=== PATIENT | male | born 1930 | race Caucasian/White ===

== ENCOUNTER 2016-08-24 10:12 | Outpatient (CLI) | payer MEDICARE ==
[~2016-08-24] VITALS: Ht 177.8 cm; Wt 93.2 kg
--- NOTE | ~2016-08-24 | HEMODYNAMI ---
PATIENT:JOSE TORRES MEDICAL RECORD: [id number] : 30 LOCATION:[facility] ADMISSION DATE: 08/24/16 Generatedon:08/24/201612:50 Patient name: JOSE TORRES Patient #: [id number] SSN: DO B: 1930 Date of study: 08/24/2016 Page: Of Hemodynamic Procedure Report Patient Data Patient Demographics Procedure consent was obtained First Name: JOSE Gender: Male Last Name: MELISSA : 1930 Middle Initial: S Age: 85 year(s) Patient #: [id number] Race: Additional ID: [id number] Contact details Address: [address] [place] [address] State: [place] City: [place] Zip code: [address] Past Medical History History of disease Date Diagnosis Comments CAD Hypertension Allergies Allergen Reaction Date Comments Reported Other allergy 08/24/2016 PCN Admission Admission Data Admission Date: 08/24/2016 Admission Time: 10:12 Admit Source: Other Insurance Payor: Private health insurance Height (in.): 70 BSA: 2.11 (m2) Height (cm.): 177.8 BMI: 29.41 (kg/m2) Weight (lbs.): 205 Weight (kg.): 92.99 Procedure Procedure Types Cath Procedure Diagnostic Procedure Cardioversion Procedure Description Procedure Date Procedure Date: 08/24/2016 Procedure Start Time: 12:42 Procedure End Time: 12:48 Procedure Staff Name Function Eleuterio Hua MD Performing Physician Dani Kaufman RN Nurse David Senior RN Train Driver Amado Guy RT Monitor Procedure Data Cath Procedure Fluoroscopy Diagnostic fluoroscopy Total fluoroscopy Time: 0 time: 0 min min Diagnostic fluoroscopy Total fluoroscopy dose: 0 dose: 0 mGy mGy Contrast Material Contrast Material Type Amount (ml) Isovue 300 0 Estimated blood loss: 0 ml Procedure Complications No complications Procedure Medications Medication Administration Route Dosage Oxygen NC 2 l/min Refer to Anesthesia Notes for Sedation Medications Hemodynamics Rest BSA: 2.11 (m2) O2 Consumption: Estimated: 239.5 (ml/min) O2 Consumption indexed: Estimated:113.51 (ml/min/m) Heart Rate: 70 (bpm) Snapshots Pre Cath Intra NCS Post Cath Vital Signs Time Heart Resp SPO2 etCO2 [id number] Respiration NIBP (mmHg) Rhythm Pain Sedation Rate (ipm) (%) (mmHg) (mmHg) (CO2) (ipm) Status Level (bpm) 12:38:50 67 14 98 36.5 2.2 12 129/72(98) NSR 0 (1 1) 10(A) , No pain 12:43:49 55 16 98 21.6 2.9 20 117/65(100) NSR 0 (1 1) 9(A) , No pain 12:47:59 57 17 97 12.7 2.9 11 114/65(92) NSR 0 (1 1) 10(A) , No pain Medications Time Medication Route Dose Verified Delivered Reason Notes Effectiven ess by by 12:37:42 Oxygen NC 2 Eleuterio Louise used for l/min Melita Kaufman bank consultant 12:37:45 Refer to Eleuterio Louise Anesthesia Melita Kaufman RN Notes for Sedation Medications Procedure Log Time Note 12:19:41 David Senior RN sent for patient. Start room use. 12:19:42 Time tracking: Regular hours 12:19:46 Plan of Care:Hemodynamics will remain stable., Cardiac rhythm will remain stable., Comfort level will be maintained., Respiratory function will remain adequate., Patient/ family verbilizes understanding of procedure., Procedure tolerated without complication., Recovers from procedure without complications.. 12:22:28 Quick Combo opened to sterile field. 12:23:16 Rajeev Singleton present and monitoring patient for TIVA. 12:30:59 Patient received from Outpatients to CCL 2 Alert and oriented. Tansferred to table in Supine position. 12:31:00 Warm blankets applied, and crow hugger turned on for patient comfort. 12:31:01 Correct patient and procedure confirmed by team. 12:31:03 Signed procedure consent form obtained from patient. 12:31:04 ECG and BP/O2 sat monitors applied to patient. 12:32:45 H&P Date Dictated: 08/18/2016 Within 30 days and on chart., H&P Addendum completed by physician on day of procedure. (MUST COMPLETE FOR ALL OUTPATIENTS). 12:32:50 Pre-procedure instructions explained to patient. 12:32:51 Pre-op teaching completed and patient verbalized understanding. 12:32:53 Family in waiting room. 12:32:54 Patient NPO since Midnight. 12:33:55 Patient allergic to Other allergyPCN 12:33:58 Is the patient allergic to Iodine/contrast media? No. 12:35:08 Is patient on blood thinner?Yes 12:35:11 ACC The patient was administered the following blood thiners within the last 24 hours: Xarelto 12:35:15 Patient diabetic? No. 12:35:18 Previous problem with sedation/anesthesia? No ? 12:35:19 Snore? No 12:35:21 Sleep apnea? No 12:35:22 Deviated septum? No 12:35:22 Opens mouth fully? Yes 12:35:23 Sticks out tongue? Yes 12:35:25 Airway obstruction? No ? 12:35:27 Dentures? No ? 12:35:40 Patient pain scale 0/10 ?. 12:35:45 IV patent on arrival in right forearm with 0.9% NaCl at [facility]. 12:35:53 Alarms reviewed by Russ Green 12:36:36 Physician paged 12:36:45 Admit Source: Other 12:36:55 Patient Height : 70 cm 12:37:04 Patient Weight : 205 kg 12:37:04 Insurance Payor : Private health insurance 12:37:42 Oxygen 2 l/min NC was given by Dani Kaufman RN; used for procedure; 12:37:42 Vital chart was started 12:37:45 Refer to Anesthesia Notes for Sedation Medications was given by Dani Kaufman RN; ; 12:37:51 Baseline sample Acquired. 12:38:02 Rhythm: atrial fibrillation 12:38:05 Full Disclosure recording started 12:42:06 Physician arrived 12:42:07 --------ALL STOP TIME OUT------ 12:42:07 Final Timeout: patient, procedure, and site verified with staff and physician. All members of the team are in agreement. 12:42:11 Physical assessment completed. ASA score P 3 - A patient with severe systemic disease as per Eleuterio Hua MD. 12:42:15 Sedation plan: TIVA Propofol 12:42:20 Quick combo pads placed on patients chest and back. 12:42:28 Procedure started. 12:42:49 Defibrillator synced and charged to 300 Joules. 12:42:58 Shock delivered. 12:44:37 Patient cardioverted to sinus rhythm . 12:44:50 Procedure ended.(Physican Out) 12:45:05 Fluoroscopy time 00.00 minutes. 12:45:07 Fluoroscopy dose: 0 mGy 12:45:07 Flurop Dose total: 0 12:45:09 Contrast amount:Isovue 300 0ml. 12:45:10 Sharps counted by scrub and verified by R.N. 12:45:14 Post Procedure Pulses reassessed and unchanged 12:45:16 Post-procedure physical assessment completed. ASA score P 3 - A patient with severe systemic disease as per Eleuterio Hua MD. 12:45:49 Post procedure rhythm: sinus rhythm 12:45:57 Estimated blood loss: 0 ml 12:45:58 Post procedure instruction explained to patient.Patient verbalizes understanding. 12:45:58 Patient needs reinforcement of post procedure teaching. 12:46:58 Procedure and supply charges have been captured, reviewed, submitted and are correct. 12:47:01 Procedure Complication : No complications 12:48:33 Vital chart was stopped 12:48:35 See physician's report for complete and final results. 12:48:36 Report given to Post Procedure Room. 12:48:40 Patient transfered to Post Procedure Room with Stretcher. 12:48:42 Procedure ended. 12:48:42 Full Disclosure recording stopped 12:48:47 End room use (Document Last) Device Usage Item Manufacture Quantity Catalog Hospital Part Current Minimal Lot# / Name Number Charge Number Stock Kelsea Guillermo sd# Code [employer] 1 [id number] Combo Signature Audit [place] Stage Time Signature Unsigned Intra-Procedure 08/24/2016 Amado Guy 12:50:50 PM RT(R) Signatures Monitor : Amado Guy RT Signature : Date : Time : [place] [id number] [place] [id number]
[~2016-08-24 10:12] MED LIST: BAYER CHEWABLE81 MG PO; COREG25 MG PO; FERROUS SULFAT325 MG PO; FISH OIL 1,0001 CA1 PO; GEMFIBROZIL600 MG PO; HYDROCHLOROTH12.5 M1 PO; IRON PO; LASIX20 MG PO; LIPITOR40 MG PO; MULTIPLE VITAMI1 TA1 PO; NIFEDIPINE ER60 MG PO; NITROSTAT0.4 MG SL; PLAVIX75 MG PO; PRINIVIL20 MG PO; ZETIA10 MG PO; ZYLOPRIM300 MG PO
[2016-08-24] MEDS ORDERED: SORINE80 MG PO (11:57)
[2016-08-24] MEDS ORDERED: GABAPENTIN100 MG PO (11:58)
[2016-08-24] MEDS ORDERED: XARELTO20 MG PO (12:00)
[2016-08-24 12:02] VITALS: BP 139/54; Ht 177.8 cm; Wt 93.2 kg
[2016-08-24 12:04] LABS: BASOPHILS 0.8 % (0.0-2.0); EOSINOPHILS 5.1 % (0-7); HEMATOCRIT 37.7 % (42.0-54.0); HEMOGLOBIN 12.2 g/dL (13.5-17.5); IMMATURE GRANULOCYTES 0.4 % (0-5); LYMPHOCYTES 28.6 % (15-50); MCH 29.5 pg (26.0-34.0); MCHC 32.4 g/dL (31.0-37.0); MCV 91.1 fL (80.0-100.0); MEAN PLATELET VOLUME 11.7 fL (7.4-10.4); MONOCYTES 14.3 % (2-11); NEUTROPHILS 50.8 % (40-80); PLATELET COUNT 147 10x3/uL (130-400); RBC 4.14 10x6/uL (4.20-6.10); RDW 16.1 % (11.5-14.5); WBC 7.4 10x3/uL (4.8-10.8)
[2016-08-24 12:15] LABS: ANION GAP 9.8 mmol/L (8-16); CALCIUM 9.4 mg/dL (8.5-10.1); CARBON DIOXIDE 29.5 mmol/L (21.0-32.0); CREATININE - SERUM 1.5 mg/dL (0.6-1.3); POTASSIUM - SERUM 4.3 mmol/L (3.5-5.1)
[2016-08-24 12:18] LABS: INR 1.66 (0.85-1.17); PROTIME 19.5 SECONDS (11.6-15.0)
--- NOTE | 2016-08-24 13:53 | NUR ---
1400-PT ALERT AND ORIENTED, NO DISTRESS, PT TOLERATES DIET, DENIES N/V, CHEST PAIN OR DYSPNEA, SB, RATE 48, VSS, FAMILY AT BEDSIDE, CONT POC, ENCOURAGED TO CALL FOR NEEDS.
--- NOTE | 2016-08-24 14:36 | NUR ---
1430-PT HAS TOLERATED DIET, NO COMPLAINTS, SB, VSS, FAMILY AT BEDSIDE, URINAL OFFERED PT ABLE TO VOID WITHOUT DIFFICULTY.
--- NOTE | 2016-08-24 14:45 | NUR ---
IV DC, CATH INTACT, SB, VSS, NO COMPLAINT, IV DC, CATH INTACT, PT UP TO GET DRESSED, ENCOURAGED TO CALL FOR NEEDS.
--- NOTE | 2016-08-24 15:01 | NUR ---
DC INSTRUCTIONS REVIEWED WITH PT/FAMILY, VERBALIZES UNDERSTANDING, PT HAS NO COMPLAINTS, PT READY FOR DC, CALL FOR WC
--- NOTE | 2016-08-26 11:11 | OP ---
PATIENT NAME: JOSE TORRES MEDICAL RECORD: [id number] :30 LOCATION:[facility] ADMISSION DATE: SURGEON: DANGELO VERAS MD DATE OF OPERATION: 08/24/2016 PROCEDURE: DC cardioversion. INDICATION: Atrial fibrillation. PROCEDURE IN DETAIL: IV conscious sedation was performed per anesthesia. Continuous heart rate, O2 saturation, blood pressure monitoring were all undertaken, all of which remains stable. He received 1 shock at 300 joules restoring sinus rhythm. OVERALL IMPRESSION: Successful DC cardioversion from atrial fibrillation to sinus rhythm. TRANSINT:[id number] Voice Confirmation ID: [id number] DOCUMENT ID: [id number] DANGELO VERAS MD at 1111 CC: [id number] DICTATION DATE: 08/24/16 1246 CHIP MACHINE OPERATOR: 08/24/16 1300 DEP CLI 08/24/[address] [address]
== END 2016-08-24 15:02 | disposition home or self-care (01) ==
LOC: D.CATH 10:12
PROVIDERS: Internal Medicine Interventional Cardiology
DX: I48.91 Unspecified atrial fibrillation (principal); I25.10 Atherosclerotic heart disease of native coronary artery without angina pectoris; Z95.1 Presence of aortocoronary bypass graft; Z95.5 Presence of coronary angioplasty implant and graft

== ENCOUNTER 2017-05-30 09:59 | Outpatient (CLI) | payer MEDICARE ==
[~2017-05-30 09:59] MED LIST changes: +GABAPENTIN100 MG PO; +SORINE80 MG PO; +XARELTO20 MG PO
[2017-05-30] MEDS ORDERED: BAYER CHEWABLE81 MG PO (10:25)
[2017-05-30] MEDS ORDERED: PROTONIX20 MG PO (10:27)
[2017-05-30] MEDS ORDERED: KENALOG 0.1 % 115 GM TOPICAL (10:28)
[2017-05-30 10:34] VITALS: BP 144/68; BMI 28.7
[2017-05-30 10:45] LABS: BASOPHILS 0.9 % (0-2); EOSINOPHILS 6.4 % (0-7); HEMATOCRIT 32.3 % (42.0-54.0); HEMOGLOBIN 10.2 g/dL (13.5-17.5); IMMATURE GRANULOCYTES 0.3 % (0-5); LYMPHOCYTES 24.5 % (15-50); MCH 29.7 pg (26.0-34.0); MCHC 31.6 g/dL (31.0-37.0); MCV 94.2 fL (80.0-100.0); MEAN PLATELET VOLUME 11.3 fL (7.4-10.4); MONOCYTES 13.3 % (2-11); NEUTROPHILS 54.6 % (40-80); PLATELET COUNT 176 10x3/uL (130-400); RBC 3.43 10x6/uL (4.20-6.10); RDW 15.3 % (11.5-14.5); WBC 7.5 10x3/uL (4.8-10.8)
[2017-05-30 10:52] LABS: ANION GAP 13.9 mmol/L (8-16); CALCIUM 9.2 mg/dL (8.5-10.1); CARBON DIOXIDE 25.5 mmol/L (21.0-32.0); CREATININE - SERUM 1.6 mg/dL (0.6-1.3); POTASSIUM - SERUM 4.4 mmol/L (3.5-5.1)
[2017-05-30 10:53] LABS: INR 0.95 (0.85-1.17); PROTIME 12.5 SECONDS (11.6-15.0)
--- NOTE | 2017-05-30 12:36 | NUR ---
PATIENT NOT TAKING BLOOD THINNERS TO PROCEDURE CANCELLED. BROUGHT BACK TO CATH HOLDING AREA. LEFT PIV D/C'D WITH CATHETER INTACT, BAND AID TO SITE. CALLED DR. VERAS'S OFFICE AND NOTIFIED THEM THAT HE NEEDED SAMPLES OF XARELTO PER DR. VERAS AND MADE FOLLOW UP APPOINTMENT WITH DR. VERAS FOR 3 WEEKS.
--- NOTE | 2017-05-30 12:55 | NUR ---
DISCHARGE INSTRUCTIONS GIVEN, VERBALIZED UNDERSTANDING. TAKEN OUT VIA WHEELCHAIR BY CATH QUALITY ASSURANCE COACH. LEFT FACILITY WITH AND ALL PERSONAL BELONGINGS.
[2017-07-17] MEDS ORDERED: FUROSEMIDE40 MG PO (08:48)
== END 2017-05-30 12:55 | disposition home or self-care (01) ==
LOC: D.CATH 09:59
PROVIDERS: Internal Medicine Interventional Cardiology
DX: I48.91 Unspecified atrial fibrillation (principal); R94.31 Abnormal electrocardiogram [ECG] [EKG]; Z01.812 Encounter for preprocedural laboratory examination

== ENCOUNTER 2017-06-23 09:18 | Outpatient (CLI) | payer MEDICARE ==
--- NOTE | ~2017-06-23 | HEMODYNAMI ---
PATIENT:JOSE TORRES MEDICAL RECORD: [id number] : 30 LOCATION:[facility] ADMISSION DATE: 06/23/17 Generatedon:06/23/201713:10 Patient name: JOSE TORRES Patient #: [id number] SSN: DO B: 1930 Date of study: 06/23/2017 Page: Of Hemodynamic Procedure Report Patient Data Patient Demographics Procedure consent was obtained First Name: JOSE Gender: Male Last Name: MELISSA : 1930 Middle Initial: S Age: 86 year(s) Patient #: [id number] Race: Additional ID: [id number] Contact details Address: [address] [place] [address] State: [place] City: [place] Zip code: [address] Past Medical History History of disease Date Diagnosis Comments CAD Hypertension Allergies Allergen Reaction Date Comments Reported Other allergy 08/24/2016 PCN Other allergy 06/23/2017 PCN Admission Admission Data Admission Date: 06/23/2017 Admission Time: 9:18 Procedure Procedure Types Cath Procedure Diagnostic Procedure Procedure Description Procedure Date Procedure Date: 06/23/2017 Procedure Start Time: 12:58 Procedure End Time: 13:06 Procedure Staff Name Function Eleuterio Hua MD Performing Physician Dani Kaufman RN Nurse Celine Arroyo RN Nurse Adelaide Tran RT Monitor rTena Montoya RT Monitor Procedure Data Procedure Complications No complications Procedure Medications Medication Administration Route Dosage Oxygen NC 2 l/min 0.9% NaCl I.V. Refer to Anesthesia Notes for Sedation Medications Hemodynamics Rest Pre Cath Intra NCS Post Cath Vital Signs Time Heart Resp SPO2 etCO2 NIBP (mmHg) Rhythm Pain Sedation Rate (ipm) (%) (mmHg) Status Level (bpm) 12:56:06 51 25 95 32.5 140/62(111) NSR 0 (11) 10(A) , No pain 13:00:19 52 36 100 26.4 118/71(98) NSR 0 (11) 10(A) , No pain 13:04:35 51 13 100 30.2 105/53(89) NSR 0 (11) 10(A) , No pain Medications Time Medication Route Dose Verified Delivered Reason Notes Effectiven ess by by 12:54:37 Oxygen NC 2 Eleuterio Louise used for l/min Melita Kaufman RN procedure 12:54:50 0.9% NaCl I.V. kvo Eleuterio Louise Per ml/hr Melita Kaufman RN physician 12:54:56 Refer to Eleuterio Louise Anesthesia Meltia Kaufman RN Notes for Sedation Medications Procedure Log Time Note 12:42:13 Dani Kaufman RN sent for patient. Start room use. 12:42:21 Plan of Care:Hemodynamics will remain stable., Cardiac rhythm will remain stable., Comfort level will be maintained., Respiratory function will remain adequate., Patient/ family verbilizes understanding of procedure., Procedure tolerated without complication., Recovers from procedure without complications.. 12:42:23 Time tracking: Regular hours 12:46:14 Patient received from Pre/Post Procedure Room to [facility] 2 Alert and oriented. Tansferred to table in Supine position. 12:46:18 Warm blankets applied, and crow hugger turned on for patient comfort. 12:46:22 Correct patient and procedure confirmed by team. 12:46:23 Signed procedure consent form obtained from patient. 12:46:24 ECG and BP/O2 sat monitors applied to patient. 12:46:41 H&P Date Dictated: 06/14/2017 Within 30 days and on chart., H&P Addendum completed by physician on day of procedure. (MUST COMPLETE FOR ALL OUTPATIENTS). 12:46:43 Pre-procedure instructions explained to patient. 12:46:45 Family in waiting room. 12:46:47 Patient NPO since Midnight. 12:47:03 Patient allergic to Other allergyPCN 12:47:08 Snore? Yes 12:47:12 Sleep apnea? No 12:47:45 Dentures? No ? 12:48:01 Patient pain scale 0/10 ?. 12:48:18 IV patent on arrival in right hand with 0.9% NaCl at K[facility]. 12:48:36 Lab results completed and on chart. 12:48:40 Physician paged 12:48:49 Physician arrived 12:50:31 --------ALL STOP TIME OUT------ 12:50:32 Final Timeout: patient, procedure, and site verified with staff and physician. All members of the team are in agreement. 12:50:39 Sedation plan: TIVA Propofol 12:50:59 Dr. Garcia present and monitoring patient for TIVA. 12:51:13 Quick combo pads placed on patients chest and back. 12:51:43 Quick Combo opened to sterile field. 12:54:37 Oxygen 2 l/min NC was administered by Dani Kaufman RN; used for procedure; 12:54:50 0.9% NaCl kvo ml/hr I.V. was administered by Dani Kaufman RN; Per physician; 12:54:56 Refer to Anesthesia Notes for Sedation Medications was administered by Dani Kaufman RN; ; 12:54:59 Vital chart was started 12:58:36 Procedure started. 12:58:36 Full Disclosure recording started 13:03:30 Pt spontaneously converted. No shock needed. 13:03:43 Procedure ended.(Physican Out) 13:04:09 Sharps counted by scrub and verified by R.N. 13:05:04 Procedure type changed to Cath procedure, Diagnostic procedure 13:05:06 Procedure and supply charges have been captured, reviewed, submitted and are correct. 13:05:40 Procedure Complication : No complications 13:05:43 Vital chart was stopped 13:05:52 See physician's report for complete and final results. 13:05:56 Report given to Pre/Post Procedure Room. 13:06:12 Patient transfered to Pre/Post Procedure Room with Stretcher. 13:06:14 Procedure ended. 13:06:14 Full Disclosure recording stopped 13:06:16 End room use (Document Last) Device Usage Item Manufacture Quantity Catalog Hospital Part Current Minimal Lot# / Name Number Charge Number Stock Stock Mima taylor# Code [employer] 1 [id number] Combo Signature Audit [place] Stage Time Signature Unsigned Intra-Procedure 06/23/2017 Trena Montoya 1:10:22 PM RT(R) Signatures Monitor : Adelaide Tran RT Signature : Date : Time : Monitor : Trena Montoya Signature : RT Date : Time : [address] [place] [address]
[~2017-06-23 09:18] MED LIST changes: +KENALOG 0.1 % 115 GM TOPICAL; +PROTONIX20 MG PO
--- NOTE | 2017-06-23 09:48 | NUR ---
[address] BARROSO TO CLARIFY REGLAN ORDER. DR BARROSO STATED GIVE PEPCID IV ONLY PER ORDERS AND DC ORDER FOR REGLAN.
[2017-06-23 10:07] VITALS: BP 144/46; BMI 28.7
[2017-06-23 10:20] LABS: BASOPHILS 0.8 % (0-2); EOSINOPHILS 5.8 % (0-7); HEMATOCRIT 29.5 % (42.0-54.0); HEMOGLOBIN 9.3 g/dL (13.5-17.5); IMMATURE GRANULOCYTES 0.1 % (0-5); LYMPHOCYTES 29.3 % (15-50); MCH 29.2 pg (26.0-34.0); MCHC 31.5 g/dL (31.0-37.0); MCV 92.8 fL (80.0-100.0); MONOCYTES 10.6 % (2-11); NEUTROPHILS 53.4 % (40-80); PLATELET COUNT 170 10x3/uL (130-400); RBC 3.18 10x6/uL (4.20-6.10); WBC 7.8 10x3/uL (4.8-10.8)
[2017-06-23 10:25] LABS: INR 2.16 (0.85-1.17); PROTIME 24.1 SECONDS (11.6-15.0)
[2017-06-23 10:42] LABS: ANION GAP 13.9 mmol/L (8-16); CALCIUM 9.2 mg/dL (8.5-10.1); CREATININE - SERUM 2.1 mg/dL (0.6-1.3); POTASSIUM - SERUM 4.9 mmol/L (3.5-5.1)
--- NOTE | 2017-06-23 13:24 | NUR ---
1315 ARRIVED BACK VIA STRETCHER. NO SHOCK NEEDED. PATIENT CONVERTED TO SINUS ON HIS OWN WHEN PROPOFOL WAS ADMINISTERED.
--- NOTE | 2017-06-23 14:00 | NUR ---
1400 PIV REMOVED FROM LEFT WRIST WITH BANDAID APPLIED.
--- NOTE | 2017-06-23 14:00 | NUR ---
1340 SITTING UP EATING TURKEY SANDWICH AND SIPPING SODA. AT BEDSIDE.
--- NOTE | 2017-06-23 14:14 | NUR ---
UP TO BEDSIDE TO DRESS WITH AT BEDSIDE.
--- NOTE | 2017-06-23 14:21 | NUR ---
D/C INSTRUCTIONS DISCUSSED WITH PATIENT AND AT BEDSIDE. WHEELED OUT VIA WHEELCHAIR BY CATH TEAM.
[2017-07-17] MEDS ORDERED: FUROSEMIDE40 MG PO (08:48)
--- NOTE | 2017-07-25 12:17 | OP ---
PATIENT NAME: JOSE TORRES MEDICAL RECORD: [id number] :30 LOCATION:D.CAT ADMISSION DATE: SURGEON: DANGELO VERAS MD DATE OF OPERATION: 06/23/2017 PROCEDURE: DC cardioversion. INDICATION: Atrial fibrillation. PROCEDURE IN DETAIL: IV conscious sedation was performed per anesthesia. He received 1 shock at 275 joules restoring sinus rhythm. OVERALL IMPRESSION: Successful DC cardioversion from atrial fibrillation to a sinus rhythm. TRANSINT:[id number] Voice Confirmation ID: [id number] DOCUMENT ID: [id number] DANGELO VERAS MD at 1217 CC: [id number] DICTATION DATE: 07/24/17 1536 MANUFACTURERS SERVICE REPRESENTATIVE: 07/24/17 1844 DEP CLI 06/23/[address] [address]
== END 2017-06-23 14:22 | disposition home or self-care (01) ==
LOC: D.CATH 09:18
PROVIDERS: Internal Medicine Interventional Cardiology
DX: I48.91 Unspecified atrial fibrillation (principal); Z01.812 Encounter for preprocedural laboratory examination

== ENCOUNTER → 2017-07-17 08:17 | Outpatient (CLI) | payer MEDICARE ==
[~2017-07-17] VITALS: Ht 177.8 cm; Wt 90.9 kg
--- NOTE | ~2017-07-17 | HEMODYNAMI ---
PATIENT:JOSE TORRES MEDICAL RECORD: [id number] : 30 LOCATION:[facility] ADMISSION DATE: 07/17/17 Generatedon:07/17/201710:22 Patient name: JOSE TORRES Patient #: [id number] SSN: DO B: 1930 Date of study: 07/17/2017 Page: Of Hemodynamic Procedure Report Patient Data Patient Demographics Procedure consent was obtained First Name: JOSE Gender: Male Last Name: MELISSA : 1930 Middle Initial: S Age: 86 year(s) Patient #: [id number] Race: Additional ID: [id number] Contact details [address]: [address] [place] [address] State: [place] City: [place] Zip code: [address] Past Medical History History of disease Date Diagnosis Comments CAD Hypertension Allergies Allergen Reaction Date Comments Reported Other allergy 08/24/2016 PCN Other allergy 06/23/2017 PCN Other allergy 07/17/2017 PCN Admission Admission Data Admission Date: 07/17/2017 Admission Time: 8:17 Height (in.): 70 BSA: 2.09 (m2) Height (cm.): 177.8 BMI: 28.75 (kg/m2) Weight (lbs.): 200.4 Weight (kg.): 90.9 Lab Results Lab Result Date: 07/17/2017 Lab Result Time: 0:00 Biochemistry Name Units Result Min Max BUN mg/dl 52 --(----)-* 7 18 Creatinine mg/dl 2.2 --(----)-* 0.6 1.3 CBC Name Units Result Min Max Hemoglobin g/dl 9.8 *-(----)-- 13.5 17.5 Procedure Procedure Types Cath Procedure Diagnostic Procedure LHC LHC w/Coronaries w/Grafts Miscellaneous Procedures Moderate Sedation up to 15 minutes Procedure Description Procedure Date Procedure Date: 07/17/2017 Procedure Start Time: 10:11 Procedure End Time: 10:21 Procedure Staff Name Function Eleuterio Hua MD Performing Physician Christ Bains RN Nurse Abraham Baugh RT Scrub [facility] RT Monitor Amado Guy RT Monitor David Senior RN Back Tender Cylinder Procedure Data Cath Procedure Fluoroscopy Diagnostic fluoroscopy Total fluoroscopy Time: 1.5 time: 1.5 min min Diagnostic fluoroscopy Total fluoroscopy dose: 340 dose: 340 mGy mGy Contrast Material Contrast Material Type Amount (ml) Isovue 300 55 Entry Location Entry Primary Successful Side Size Upsize Upsize Entry Closure Succes sful Closure Location (Fr) 1 (Fr) 2 (Fr) Remarks Device Remarks Femoral Right 5 Fr Exoseal artery Estimated blood loss: 10 ml Diagnostic catheters Device Type Used For End Catheter Placement MULTIPACK Pigtail 5 Fr Procedure catheter MULTIPACK JL 4.0 5Fr Procedure catheter MULTIPACK 3DRC 5Fr Procedure catheter DIAGNOSTIC AR 2 MOD 5 Fr Procedure catheter ([id number]) Procedure Complications No complications Procedure Medications Medication Administration Route Dosage 0.9% NaCl I.V. 100 ml/hr Oxygen NC 2 l/min Heparin Flush Bag added to field 2 bags (1000units/500ml NS) Lidocaine 2% added to field 20 Versed I.V. 0.5 mg Fentanyl I.V. 25 mcg Hemodynamics Rest BSA: 2.09 (m2) HGB: 9.8 (g/dl) O2 Consumption: Estimated: 225.57 (ml/min) O2 Con sumption indexed: Estimated:107.93 (ml/min/m) Heart Rate: 56 (bpm) Snapshots Pre Cath Intra NCS Post Cath Vital Signs Time Heart Resp SPO2 etCO2 NIBP (mmHg) Rhythm Pain Sedation Rate (ipm) (%) (mmHg) Status Level (bpm) 9:59:26 59 14 98 33.7 147/64(113) A-Fib 0 (11) 10(A) , No pain 10:04:11 54 13 97 35.9 135/61(98) A-Fib 0 (11) 10(A) , No pain 10:08:57 53 13 97 35.2 123/62(99) A-Fib 0 (11) 10(A) , No pain 10:14:15 54 13 97 34.4 127/60(102) A-Fib 0 (11) 9(A) , No pain 10:18:59 51 12 97 35.2 131/65(101) A-Fib 0 (11) 9(A) , No pain Medications Time Medication Route Dose Verified Delivered Reason Notes Effe ctiveness by by 9:59:54 0.9% NaCl I.V. 100 Christ Christ Per ml/hr Nara Bains physician RN RN 10:00:05 Oxygen NC 2 Christ Christ Per l/min Nara Bains physician RN RN 10:00:19 Heparin Flush added 2 Christ Christ used for Bag to bags Lorsusy Bains procedure (1000units/500ml field RN RN NS) 10:00:31 Lidocaine 2% added 20ml Christ Christ for local to vial Lorigan Lorigan anesthetic field RN RN 10:09:38 Versed I.V. 0.5 Christ Christ for mg Lorigan Lorigan sedation RN RN 10:09:49 Fentanyl I.V. 25 Christ Christ for mcg Lorigan Lorigan sedation RN civil geotechnical engineer Log Time Note 9:30:40 David Senior RN sent for patient. Start room use. 9:41:56 Procedure type changed to Cath procedure, Diagnostic procedure, LHC, LHC w/Coronaries w/Grafts, Miscellaneous Procedures, Moderate Sedation up to 15 minutes 9:42:51 Time tracking: Regular hours 9:42:57 Plan of Care:Hemodynamics will remain stable., Cardiac rhythm will remain stable., Comfort level will be maintained., Respiratory function will remain adequate., Patient/ family verbilizes understanding of procedure., Procedure tolerated without complication., Recovers from procedure without complications.. 9:50:02 Patient received from Pre/Post Procedure Room to CCL 1 Alert and oriented. Tansferred to table in Supine position. 9:50:04 Warm blankets applied, and crow hugger turned on for patient comfort. 9:50:06 Correct patient and procedure confirmed by team. 9:50:08 Signed procedure consent form obtained from patient. 9:50:09 ECG and BP/O2 sat monitors applied to patient. 9:50:45 H&P Date Dictated: 07/12/2017 Within 30 days and on chart., H&P Addendum completed by physician on day of procedure. (MUST COMPLETE FOR ALL OUTPATIENTS). 9:50:47 Pre-procedure instructions explained to patient. 9:50:47 Pre-op teaching completed and patient verbalized understanding. 9:50:49 Family in waiting room. 9:50:50 Patient NPO since Midnight. 9:51:04 Patient allergic to Other allergyPCN 9:51:09 Is the patient allergic to Iodine/contrast media? No. 9:51:11 Is patient on blood thinner?No 9:51:12 Patient diabetic? No. 9:51:14 Previous problem with sedation/anesthesia? No ? 9:51:15 Snore? Yes 9:51:17 Sleep apnea? No 9:51:18 Deviated septum? No 9:51:18 Opens mouth fully? Yes 9:51:19 Sticks out tongue? Yes 9:51:21 Airway obstruction? No ? 9:51:22 Dentures? No ? 9:57:07 Pre procedure: right dorsailis pedis pulse 2+ Normal; easily identifiable; not easily obliterated 9:57:13 Patient pain scale 0/10 ?. 9:57:20 IV patent on arrival in left wrist with 0.9% NaCl at O. 9:58:26 Vital chart was started 9:58:30 Baseline sample Acquired. 9:58:35 Rhythm: sinus bradycardia 9:58:37 Full Disclosure recording started 9:59:54 0.9% NaCl 100 ml/hr I.V. was administered by Christ Bains RN; Per physician; 10:00:05 Oxygen 2 l/min NC was administered by Christ Bains RN; Per physician; 10:00:19 Heparin Flush Bag (1000units/500ml NS) 2 bags added to field was administered by Christ Bains RN; used for procedure; 10:00:31 Lidocaine 2% 20ml vial added to field was administered by Christ Bains RN; for local anesthetic; 10:05:03 Lab Result : BUN 52 mg/dl 10:05:03 Lab Result : Creatinine 2.2 mg/dl 10:05:03 Lab Result : Hemoglobin 9.8 g/dl 10:05:08 Lab results completed and on chart. 10:05:13 Right groin area was prepped with chlora-prep and draped in sterile fashion 10:05:14 Alarms reviewed by Russ NEsmer 10:05:14 Sharps counted by scrub and verified by REsmerNEsmer 10:05:57 --------ALL STOP TIME OUT------ 10:06: Final Timeout: patient, procedure, and site verified with staff and physician. All members of the team are in agreement. 10:06:04 Right groin site verified by team. 10:06:08 Physical assessment completed. ASA score P 2 - A patient with mild systemic disease as per Eleuterio Hua MD. 10:06:13 Sedation plan: IV Moderate Sedation Medication:Versed, Fentanyl 10:07:07 Patient Weight : 200.4 lbs 10:07:11 Patient Height : 70 inches 10:07:36 Zero performed for pressure channel P1 10::38 Versed 0.5 mg I.V. was administered by Christ Bains RN; for sedation; 10:09:49 Fentanyl 25 mcg I.V. was administered by Christ Bains RN; for sedation; 10:10:01 Use device set Femoral Dx 10:10:03 ACIST Syringe (08223) opened to sterile field. 10:10:03 Bag Decanter (2002S) opened to sterile field. 10:10:06 Tegaderm 4 x 4 (1626W) opened to sterile field. 10:10:06 ACIST Manifold (14666) opened to sterile field. 10:10:07 ACIST Hand Control (02820) opened to sterile field. 10:10:10 Medline Cath Pack ([id number]) opened to sterile field. 10:10:11 Terumo 5Fr [place] Sheath opened to sterile field. 10:10:12 St Juno 260cm J .035 wire opened to sterile field. 10:10:14 DIAGNOSTIC Multipack 5Fr catheter set ([id number]) opened to sterile field. 10:10:15 PERCUTANEOUS ENTRY 19GA needle opened to sterile field. 10:11:20 Procedure started. 10:11:26 Local anesthetic to right femoral artery with Lidocaine 2% by Eleuterio Hua MD.INITIAL ACCESS ONLY 10:11:57 A 5 Fr sheath was inserted into the Right Femoral artery 10:13:09 A MULTIPACK Pigtail 5 Fr catheter was advanced over the wire and used for Procedure. 10:13:14 LV hemodynamics recorded. 10:13:17 Injector settings: Ml/sec: 10, Volume: 20, 10:13:24 EF : 30 % 10:13:25 LV gram done using PAEZ 10:14:08 Catheter removed. 10:14:26 A MULTIPACK JL 4.0 5Fr catheter was advanced over the wire and used for Procedure. 10:14:30 LCA angiography performed. 10:14:34 Catheter removed. 10:14:48 A MULTIPACK 3DRC 5Fr catheter was advanced over the wire and used for Procedure. 10:14:58 PALENCIA to LAD angiography performed. 10:15:14 Catheter removed. 10:15:32 A DIAGNOSTIC AR 2 MOD 5 Fr catheter ([id number]) was advanced over the wire and used for Procedure. 10:16:01 SVG to RCA angiography performed. 10:16:28 Catheter removed. 10:16:56 EXOSEAL 5Fr (EX500) opened to sterile field. 10:17:07 Sheath removed intact; hemostasis achieved with Exoseal to the Right Femoral artery. 10:17:11 Procedure ended.(Physican Out) 10:17:53 Fluoroscopy time 01.50 minutes. 10:17:57 Flurop Dose total: 340 10:17:57 Fluoroscopy dose: 340 mGy 10:18:00 Contrast amount:Isovue 300 55ml. 10:18:33 Insertion/operative site no bleeding no hematoma. 10:18:36 Post-op/insertion site Right Femoral artery dressed using a 4 x 4 and Tegaderm. 10:18:42 Post right femoral artery:stable, soft, clean and dry 10:18:44 Post Procedure Pulses reassessed and unchanged 10:18:48 Post procedure: right dorsailis pedis pulse 2+ Normal; easily identifiable; not easily obliterated. 10:18:51 Post-procedure physical assessment completed. ASA score P 2 - A patient with mild systemic disease as per Eleuterio Hua MD. 10:18:55 Post procedure rhythm: unchanged. 10:18:59 Estimated blood loss: 10 ml 10:19:01 Post procedure instruction explained to patient.Patient verbalizes understanding. 10:19:01 Patient needs reinforcement of post procedure teaching. 10:19:32 Procedure and supply charges have been captured, reviewed, submitted and are correct. 10:19:36 Procedure Complication : No complications 10:21:38 Vital chart was stopped 10:21:39 See physician's report for complete and final results. 10:21:44 Report given to Pre/Post Procedure Room. 10:21:48 Patient transfered to Pre/Post Procedure Room with Bed. 10:21:50 Procedure ended. 10:21:50 Full Disclosure recording stopped 10:21:52 End room use (Document Last) Device Usage Item Name Manufacture Quantity Catalog Hospital Part Current Minimal Lot# / Number Charge Number Stock Stock Serial# Code ACIST Acist 1 14645 114073 348202 937402 20 Syringe Medical (60288) Systems Inc Bag Decanter Microtek 1 2001S 252157 12077 351336 5 (2001S) Medical Inc. Tegaderm 4 x 3M 1 1626W 017265 061891 734452 5 4 (1626W) ACIST Acist 1 23903 043414 410600 619799 5 Manifold Medical (80486) Systems Inc ACIST Hand Acist 1 52023 148775 615443 638908 5 Control Medical (19157) Systems Inc Medline Cath Cardinal 1 [id number] 272364 98433 730986 5 Pack Health ([id number]) Terumo 5Fr Terumo 1 UMY661 131518 499704 069688 [address] Juno 1 686513 958645 523398 404557 30 260cm J .035 wire DIAGNOSTIC Cardinal 1 DH1025 574557 42325 992319 30 Multipack Health 5Fr catheter set (GU8610) PERCUTANEOUS [facility] 1 G71443 534152 202129 5 ENTRY 19GA needle MULTIPACK Cardinal 1 168737 5 Pigtail 5 Fr Health catheter MULTIPACK JL Cardinal 1 684390 5 4.0 5Fr Health catheter MULTIPACK Cardinal 1 [id number] 5 3DRC 5Fr Health catheter DIAGNOSTIC Cardinal 1 [id number] 259152 672903 184854 20 AR 2 MOD 5 Health Fr catheter (980323G) EXOSEAL 5Fr Cardinal 1 EX500 621512 678935 470385 10 (EX500) Health Signature Audit [place] Stage Time Signature Unsigned Intra-Procedure 07/17/2017 Melia Charles 10:22:18 AM RT(R) Signatures Monitor : Melia Charles Signature : RT Date : Time : Monitor : Amado Guy RT Signature : Date : Time : [address] [place] [address]
[~2017-07-17 08:17] MED LIST changes: +FUROSEMIDE40 MG PO
[2017-07-17 08:57] VITALS: BP 137/50; Ht 177.8 cm; Wt 90.9 kg
[2017-07-17 09:06] LABS: BASOPHILS 0.6 % (0-2); EOSINOPHILS 7.4 % (0-7); HEMOGLOBIN 9.8 g/dL (13.5-17.5); IMMATURE GRANULOCYTES 0.2 % (0-5); LYMPHOCYTES 26.3 % (15-50); MCH 27.8 pg (26.0-34.0); MCHC 31.6 g/dL (31.0-37.0); MCV 88.1 fL (80.0-100.0); MEAN PLATELET VOLUME 10.1 fL (7.4-10.4); MONOCYTES 12.6 % (2-11); NEUTROPHILS 52.9 % (40-80); PLATELET COUNT 173 10x3/uL (130-400); RBC 3.52 10x6/uL (4.20-6.10); RDW 14.5 % (11.5-14.5); WBC 8.9 10x3/uL (4.8-10.8)
[2017-07-17 09:15] LABS: ANION GAP 14.9 mmol/L (8-16); CALCIUM 9.2 mg/dL (8.5-10.1); CARBON DIOXIDE 24.7 mmol/L (21.0-32.0); CREATININE - SERUM 2.2 mg/dL (0.6-1.3); POTASSIUM - SERUM 4.6 mmol/L (3.5-5.1)
--- NOTE | 2017-07-17 10:45 | NUR ---
5 FR EXOEAL R/GROIN CDI AND SOFT TO TOUCH. PULSES PRESENT AND MARKED. VSS WITH CHEST PAIN DENIED. INSTRUCTED PATIENT TO KEEP HEAD FLAT ON PILLOW WITH RLE STRAIGHT.
--- NOTE | 2017-07-17 10:49 | NUR ---
TR BAND REMAINS TO R/WRIST CDI NO BLEEDING NO HEMATOMA NOTED. VSS WITH PAIN AND NEEDS DENIED PATIENT TOLERATING SANDWICH WITH NO NAUSEA FAMILY IS AT BEDSIDE
--- NOTE | 2017-07-17 11:21 | NUR ---
5 FR EXOSEAL R/GROIN CDI NO BLEEDING NO HEMATOMA NOTED VSS
--- NOTE | 2017-07-17 11:35 | NUR ---
DR VERAS AT BEDSIDE TALKING TO PATIENT AND FAMILY VSS WITH NEEDS DENIED R/GROIN STABLE
--- NOTE | 2017-07-17 11:50 | NUR ---
5 FR EXOSEAL R/GROIN CDI WITH NO BLEEDING NO HEMATOMA NOTED. REPOSITIONED TO SITTING WITH HOB UP 45 DEGREES. SANDWICH AND SODA TO BEDSIDE.
--- NOTE | 2017-07-17 12:11 | NUR ---
PIV REMOVED WITH DRESSING APPLIED, VERBAL AND WRITTEN DISCHARGE GONE OVER WITH PATIENT AND FAMILY BOTH VERBALZIED UNDERSTANDING. R/GROIN REMAINS CDI NO BLEEDING NOTED. PATIENT UP TO GET DRESSED FOR DISCHARGE
--- NOTE | 2017-07-17 12:26 | NUR ---
VERBAL AND WRITTEN DISCHARGE GONE OVER AGAIN TO ENSURE PATIENT UNDERSTANDING. R/GROIN REMAINS STABLE WITH PAIN DENIED. PATIENT LEFT VIA WC TO PARKING FOR TO DRIVE HOME NO DISTRESS AND SLOW STEADY GAIT
--- NOTE | 2017-07-25 12:17 | OP ---
PATIENT NAME: JOSE TORRES MEDICAL RECORD: [id number] :30 LOCATION:D.CAT ADMISSION DATE: SURGEON: DANGELO VERAS MD DATE OF OPERATION: 07/17/2017 PROCEDURES: 1. Left heart catheterization. 2. Selective coronary angiography. 3. Left ventriculogram. 4. PALENCIA angiography. 5. Vein graft angiography. INDICATION: Angina and coronary artery disease. PROCEDURE IN DETAIL: After informed consent was obtained and after detailed explanation of risks, benefits as well as alternative therapies, the patient elected to proceed with angiogram and heart catheterization. The right femoral area was prepped and draped in normal sterile fashion. Right femoral artery was cannulated via modified Seldinger technique with placement of 5-Thai sheath. All catheters exchanged through this sheath. FINDINGS: Left ventriculogram was performed in standard 30-degree PAEZ view reveals global hypokinesis throughout all segments. Overall ejection fraction 35%. SELECTIVE CORONARY ANGIOGRAPHY: 1. Left main has previously placed stent. This is widely patent. This leads into a non-grafted LAD diagonal. 2. Left anterior descending is totally occluded. 3. PALENCIA to the LAD is widely patent. Distal LAD is widely patent. 4. Left circumflex is close. This is unchanged from previous angiography. 5. Vein graft to the circumflex is closed. This is unchanged from previous angiography. 6. Right coronary artery is closed. 7. Vein graft to the right coronary artery is widely patent. Distal right coronary artery is widely patent. OVERALL IMPRESSION: Wide patency of the previously placed stent in the left main, wide patency of the PALENCIA to the LAD and vein graft to the RCA. Continue medical management of the coronary artery disease and cardiac risk factors. TRANSINT:[id number] Voice Confirmation ID: [id number] DOCUMENT ID: [id number] DANGELO VERAS MD at 1217 CC: [id number] DICTATION DATE: 07/17/17 1021 USABILITY ARCHITECT: 07/17/17 1155 DEP CLI 07/17/[address] [address]
== END | disposition home or self-care (01) ==
LOC: D.CATH 08:17
PROVIDERS: Internal Medicine Interventional Cardiology
DX: I25.110 Atherosclerotic heart disease of native coronary artery with unstable angina pectoris (principal); R06.02 Shortness of breath; E78.5 Hyperlipidemia, unspecified; I10 Essential (primary) hypertension; Z01.812 Encounter for preprocedural laboratory examination